=== PATIENT | male | born 1995 | race Caucasian/White ===

== ENCOUNTER 2017-01-04 21:31 | Emergency (ER) | payer OTHER ==
[~2017-01-04] VITALS: Ht 175.3 cm; Wt 70.0 kg
[2017-01-04 21:32] VITALS: BP 119/63; PULSE 77; RESP 15; TEMP 99.1; O2SAT 98
[2017-01-04] MEDS ORDERED: DICL75TA PO ×2 (22:07)
--- NOTE | 2017-01-04 22:11 | PD ---
HPI Chief Complaint: right foot injury Time Seen by Provider: 22:05 Travel History International Travel<30 days: No Contact w/Intl Traveler<30days: No Traveled to known affect area: No History of Present Illness HPI 21-year-old male presents to emergency department with complaints of right foot pain after hyperflexing his foot when he stubbed his toe playing soccer today. Another player heard a pop but he did not. He states that he's had difficulty weightbearing since then. He denies any other injuries. Pain is moderate. Worse with weightbearing. No alleviating factors. PFSH Past Medical History Medical History: Denies Significant Hx Tetanus Vaccination: < 5 Years Past Surgical History Surgical History: No Previous Surgery Social History Alcohol Use: No Tobacco Use: No Substance Use: No Allergies-Medications (Allergen,Severity, Reaction): Coded Allergies: Sulfa (Sulfonamide Antibiotics) (Verified Allergy, Unknown, 01/04/17) Review of Systems General / Constitutional: No: Fever Eyes: No: Visual changes HENT: No: Headaches Cardiovascular: No: Chest Pain or Discomfort Respiratory: No: Shortness of Breath Gastrointestinal: No: Abdominal Pain Genitourinary: No: Dysuria Musculoskeletal: Positive: Arthralgias, Limited ROM, Edema, Pain, No: Weakness , Cramping Skin: No Rash Neurologic: No: Weakness Psychiatric: No: Depression Endocrine: No: Polydipsia Hematologic/Lymphatic: No: Easy Bruising Physical Exam Narrative GENERAL: This is a well-nourished, well-developed patient, in no apparent distress. SKIN: No rashes, ecchymoses or lesions. Warm and dry. HEAD: Atraumatic. Normocephalic. EYES: PERRL, EOMI, no discharge or injection. No scleral icterus. EARS: Clear NOSE: Nasal turbinates appear normal. THROAT: Mucosa pink and moist. Airway patent. NECK: Trachea midline. supple, moves head freely. LUNGS: Clear to auscultation. CV: Regular in rhythm. ABDOMEN: Soft nontender. EXT: No clubbing cyanosis. Examination of the right foot reveals tenderness to the anterior talar fibular ligament as well as the lateral proximal forefoot. There is minimal swelling. The skin is intact. No pain in the distal forefoot , toes, heel malleolus or lateral malleolus. No pain in the heel or Achilles. No pain in the knee, hip. He has intact sensation with good distal pulse. The left lower extremity as well as upper extremities are unremarkable for acute bony tenderness or deformity. Data Data Last Documented VS Vital Signs Date Time Temp Pulse Resp B/P (MAP) Pulse Ox O2 Delivery O2 Flow Rate FiO2 01/04/17 21:32 99.1 77 15 119/63 (81) 98 Room Air Orders Orders Ice/Cold Pack (01/04/17 22:05) Splint Or Brace Apply/Monitor (01/04/17 22:05) Crutches (01/04/17 22:05) Ibuprofen (Motrin) (01/04/17 22:15) Foot, Complete ([id number]) (01/04/17 22:05) MDM Medical Decision Making Medical Screen Exam Complete: Yes Emergency Medical Condition: Yes Medical Record Reviewed: Yes Interpretation(s) Right foot: Negative for acute bony injury Differential Diagnosis MDM: High Differential diagnoses: Fracture, sprain, strain, dislocation, contusion, neurovascular injury Narrative Course X-ray of the right foot is negative for bony injury. Patient given Motrin 800 mg, ice pack, crutches, Jermaine wrap. This is right foot sprain Diagnosis Primary Impression: Right foot sprain Qualified Codes: S93.601A - Unspecified sprain of right foot, initial encounter Additional Instructions: Rest. Elevation. Ice packs for the next 3 days. Jermaine wrap and crutches. No weight-bearing and then progress to weight-bearing as tolerated. Medications as directed Follow-up with an orthopedist or your doctor in one week. Return to the ER if any problems Med/Other Pt SpecificInfo: Prescription(s) given Scripts Diclofenac Sodium (Diclofenac Sodium DR) 75 Mg Tabdr 75 MG PO BID, #20 TAB 0 Refills Prov: García Velasquez MD 01/04/17 Disposition: 01 DISCHARGE HOME Condition: Stable Harris Ren Jan 04, 2017 22:11
[2017-01-04] MEDS ORDERED: IBUPROFEN 800 MG TAB PO ONE ×2 (22:15)
--- NOTE | 2017-01-04 22:31 | RADRPT ---
EXAM DATE/TIME: 01/04/2017 22:26 [facility] COMPARISON: No previous studies available for comparison. INDICATIONS : Patient tripped playing soccer today. Pain and swelling to medial aspect of foot and some pain on clayton edie aspect of right foot. MEDICAL HISTORY : None. SURGICAL HISTORY : None. ENCOUNTER: Initial ACUITY: 1 day PAIN SCORE: 5/10 LOCATION: Right Foot FINDINGS: Three view examination of the right foot demonstrates no soft tissue swelling, dislocation, or fractu re. The tarsal bones appear intact. The interphalangeal and metatarsophalangeal joints are intact. The calcaneus is intact. Bony mineralization is normal. CONCLUSION: Unremarkable examination of the right foot. Harris Higgins MD on January 04, 2017 at 22:20 Board Certified Radiologist. This report was verified electronically.
== END 2017-01-04 23:28 | disposition home or self-care (01) ==
LOC: NEPK 21:31
DX: S93.601A Unspecified sprain of right foot, initial encounter (principal); W22.8XXA Striking against or struck by other objects, initial encounter; Y93.66 Activity, soccer; Z88.2 Allergy status to sulfonamides
CPT/HCPCS: 73630; 99283; E0113

== ENCOUNTER 2017-01-26 16:53 | Emergency (ER) | payer OTHER ==
[~2017-01-26] VITALS: Ht 177.8 cm; Wt 68.0 kg
[~2017-01-26 16:53] MED LIST: DICL75TA PO
[2017-01-26 16:54] VITALS: BP 121/65; PULSE 66; RESP 16; TEMP 97.5; O2SAT 97
--- NOTE | 2017-01-26 17:44 | PD ---
HPI Chief Complaint: Injury Time Seen by Provider: 17:40 Travel History International Travel<30 days: Yes Contact w/Intl Traveler<30days: Yes Name of Country Traveled to: [facility] Traveled to known affect area: No History of Present Illness HPI 21-year-old male presents to the emergency department complaining of right foot pain for about 3 weeks. States he came to [place] for an x-ray and he was told there was no fracture. Patient has been wrapping his ankle and foot and taking Tylenol without significant relief. Patient does not take medications regularly. Denies IV drug use. Patient also denies numbness or tingling. States he feels his ankle and foot have decreased range of motion compared to his left. He is concerned that there is a fracture. PFSH Past Surgical History Other Surgery: Yes (left eye sx) Social History Alcohol Use: No Tobacco Use: No Substance Use: No Allergies-Medications (Allergen,Severity, Reaction): Coded Allergies: Sulfa (Sulfonamide Antibiotics) (Verified Allergy, Unknown, 01/26/17) Reported Meds & Prescriptions Reported Meds & Active Scripts Active No Active Prescriptions or Reported Medications Review of Systems Except as stated in HPI: all other systems reviewed are Neg Physical Exam Narrative GENERAL: Well-nourished, well-developed patient. SKIN: Focused skin assessment warm/dry. HEAD: Normocephalic. EYES: No scleral icterus. No injection or drainage. NECK: Supple, trachea midline. No JVD or lymphadenopathy. CARDIOVASCULAR: Regular rate and rhythm without murmurs, gallops, or rubs. RESPIRATORY: No accessory muscle use. MUSCULOSKELETAL: No cyanosis, or edema. Right ankle- TTP over medial aspect of foot, near the base of the 1st metatarsal - in comparing this area to the left ankle, appears to be hypertrophic. decreased flexion and extension of ankle joint. No ecchymosis. BACK: Nontender without obvious deformity. No CVA tenderness. Data Data Last Documented VS Vital Signs Date Time Temp Pulse Resp B/P (MAP) Pulse Ox O2 Delivery O2 Flow Rate FiO2 01/26/17 19:42 01/26/17 17:28 16 99 Room Air 01/26/17 16:[address] Ankle W/O Contrast (01/26/17 ) Ct Foot W/O Contrast (01/26/17 ) Splint Or Brace Apply/Monitor (01/26/17 18:57) Ed Discharge Order (01/26/17 19:42) Brace Fracture Walker (01/26/17 ) MDM Medical Decision Making Medical Screen Exam Complete: Yes Emergency Medical Condition: Yes Differential Diagnosis Right ankle fracture versus sprain versus Narrative Course 21-year-old male presents emergency department for right ankle pain. Physical exam demonstrates to palpation over the medial aspect of the heel and decreased range motion. Neurovascularly intact X-rays from 3 weeks ago were apparently normal however, patient still having pain so ordered CT. 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 Also suspected mild distal tibialis posterior tendinosis. Patient advised of findings and recommended rest for a while longer. Continue rest, ice, compression and elevation for treatment. Advised patient follow up with swim instructor for further treatment and evaluation. Advised that it is most appropriate for him to see a specialist at this point. Walking boot ordered for symptomatic relief. Continue ibuprofen for pain relief Diagnosis Primary Impression: Tendonosis Referrals: Orthopedist [employer] Additional Instructions: Follow up with an orthopedist or swim instructor doctor Follow-up with her primary care physician within 2-3 days Continue wrapping and elevating her ankle for symptom relief Continue Tylenol or Motrin per package instructions Avoid excessive activity Scripts No Active Prescriptions or Reported Meds Disposition: 01 DISCHARGE HOME Condition: Stable Christie Salas Jan 26, 2017 17:44
--- NOTE | 2017-01-26 18:26 | RADRPT ---
EXAM DATE/TIME: 01/26/2017 18:02 [facility] COMPARISON: CT FOOT RIGHT W/O CONTRAST, January 26, 2017, 18:02. FOOT RIGHT COMPLETE ([id number]), January 04 7, 22:26. INDICATIONS : Right foot pain and swelling for three weeks. RADIATION DOSE: 7.29 CTDIvol (mGy) ; Combined studies MEDICAL HISTORY : None SURGICAL HISTORY : None. ENCOUNTER: Initial ACUITY: 3 weeks PAIN SCALE: 7/10 LOCATION: Right foot TECHNIQUE: Volumetric scanning of the ankle was performed. Using automated exposure control and adjustment of t he mA and/or kV according to patient size, radiation dose was kept as low as reasonably achievable to obtain optimal diagnostic quality images. DICOM format image data is available electronically for review and comparison. FINDINGS: BONES: No evidence of fracture. Alignment is within normal limits. JOINTS: Ankle mortise is intact. No evidence of joint narrowing or effusion. SOFT TISSUES: Muscles, tendons and neurovascular structures are grossly unremarkable. No evidence of mass, organize d fluid collection, or foreign body. CONCLUSION: Normal right ankle CT. Bimal Carlson MD on January 26, 2017 at 18:23 Board Certified Radiologist. This report was verified electronically.
--- NOTE | 2017-01-26 18:30 | RADRPT ---
EXAM DATE/TIME: 01/26/2017 18:02 [facility] COMPARISON: CT ANKLE RIGHT W/O CONTRAST, January 26, 2017, 18:02. FOOT RIGHT COMPLETE ([id number]), January 04 17, 22:26. INDICATIONS : Right foot pain and swelling for three weeks. RADIATION DOSE: 7.29 CTDIvol (mGy) ; Combined studies MEDICAL HISTORY : None SURGICAL HISTORY : None. ENCOUNTER: Initial ACUITY: 3 weeks PAIN SCALE: 7/10 LOCATION: Right foot TECHNIQUE: Volumetric scanning of the foot was performed. Using automated exposure control and adjustment of th e mA and/or kV according to patient size, radiation dose was kept as low as reasonably achievable to obtain optimal diagnostic quality images. DICOM format image data is available electronically for re view and comparison. FINDINGS: There is no fracture or subluxation of the right foot. No perceptible arthropathy. Patient has a type II accessory navicular. Slight cystic change and sclerosis seen on both sides of t he synchondrosis. There also appears to be mild thickening of distal tibialis posterior tendon. No ev idence of tendon tear. CONCLUSION: 1. 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 Also suspected mild distal ti bialis posterior tendinosis. Please correlate clinically. 2. The CT appearance of the right foot is otherwise within normal limits. Bimal Carlson MD on January 26, 2017 at 18:24 Board Certified Radiologist. This report was verified electronically.
== END 2017-01-26 19:43 | disposition home or self-care (01) ==
LOC: NEPD 16:53
DX: M77.9 Enthesopathy, unspecified (principal)
CPT/HCPCS: 73700; 99284; L2114